=== PATIENT | female | born 2000 ===

== ENCOUNTER 2022-10-11 11:10 | Outpatient (CLI) | payer OTHER | END 2022-10-11 11:59 | disposition home or self-care (01) | LOC: PRENATAL 11:10 | PROVIDERS: ATTEND Obstetrics & Gynecology Maternal & Fetal Medicine | DX: Z76.1 Encounter for health supervision and care of foundling (principal) ==

== ENCOUNTER 2022-10-21 11:38 | Outpatient (CLI) | payer OTHER | END 2022-10-21 12:57 | disposition home or self-care (01) | LOC: PRENATAL 11:38 | PROVIDERS: ATTEND Obstetrics & Gynecology Maternal & Fetal Medicine | DX: O35.9XX0 Maternal care for (suspected) fetal abnormality and damage, unspecified, not applicable or unspecified (principal); Z3A.19 19 weeks gestation of pregnancy ==

== ENCOUNTER 2023-01-13 12:14 | Outpatient (CLI) | payer OTHER | END 2023-01-13 13:27 | disposition home or self-care (01) | LOC: PRENATAL 12:14 | PROVIDERS: ATTEND Obstetrics & Gynecology Maternal & Fetal Medicine | DX: O26.849 Uterine size-date discrepancy, unspecified trimester (principal); O36.8199 Decreased fetal movements, unspecified trimester, other fetus; O28.1 Abnormal biochemical finding on antenatal screening of mother; Z3A.31 31 weeks gestation of pregnancy ==

== ENCOUNTER 2023-02-26 01:56 | Outpatient (CLI) | payer OTHER ==
[2023-02-26] MEDS ORDERED: PRENATAL TABLE1 EAC1 PO (01:57)
== END 2023-02-26 11:46 | disposition home or self-care (01) ==
LOC: OBS/DEL 01:56
PROVIDERS: ATTEND Obstetrics & Gynecology
DX: O47.1 False labor at or after 37 completed weeks of gestation (principal); Z3A.38 38 weeks gestation of pregnancy; Z20.822 Contact with and (suspected) exposure to COVID-19

== ENCOUNTER 2023-03-09 07:31 | Inpatient (IN) | payer OTHER ==
[~2023-03-09] VITALS: Ht 149.9 cm; Wt 3.2 kg
[~2023-03-09 07:31] MED LIST: PRENATAL TABLE1 EAC1 PO
[2023-03-09] MEDS ORDERED: PRENATAL TABLE1 EAC1 PO (08:33)
== END 2023-03-12 12:47 | disposition home or self-care (01) | DRG 788 ==
LOC: LDR 07:31 → OB/GYN 07:31 → O/R 21:00 → OB/GYN 03-10 02:57
PROVIDERS: ADMIT Obstetrics & Gynecology; ATTEND Obstetrics & Gynecology
PROC: 4A1HXCZ Monitoring of Products of Conception, Cardiac Rate, External Approach (ICD-10-PCS; 2023-03-09)
PROC: 10D00Z1 Extraction of Products of Conception, Low, Open Approach (ICD-10-PCS; principal; 2023-03-09 20:00)
DX: O62.0 Primary inadequate contractions (principal); O99.824 Streptococcus B carrier state complicating childbirth; Z3A.39 39 weeks gestation of pregnancy; Z20.822 Contact with and (suspected) exposure to COVID-19; Z37.0 Single live birth

== ENCOUNTER 2024-11-05 14:47 | Outpatient (CLI) | payer OTHER | END 2024-11-05 14:49 | disposition home or self-care (01) | LOC: PRENATAL 14:47 | PROVIDERS: ATTEND Obstetrics & Gynecology Maternal & Fetal Medicine | DX: O45.90 Premature separation of placenta, unspecified, unspecified trimester (principal); O34.219 Maternal care for unspecified type scar from previous cesarean delivery; O43.90 Unspecified placental disorder, unspecified trimester; Z3A.18 18 weeks gestation of pregnancy ==

== ENCOUNTER → 2024-12-25 10:30 | Outpatient (CLI) | payer OTHER | END | disposition home or self-care (01) | LOC: PRENATAL 10:30 | PROVIDERS: ATTEND Obstetrics & Gynecology Maternal & Fetal Medicine | DX: O26.849 Uterine size-date discrepancy, unspecified trimester (principal); O34.219 Maternal care for unspecified type scar from previous cesarean delivery; O43.90 Unspecified placental disorder, unspecified trimester; Z3A.26 26 weeks gestation of pregnancy ==

== ENCOUNTER 2025-01-29 12:34 | Outpatient (CLI) | payer OTHER | END 2025-01-29 12:35 | disposition home or self-care (01) | LOC: PRENATAL 12:34 | PROVIDERS: ATTEND Obstetrics & Gynecology Maternal & Fetal Medicine | DX: O26.849 Uterine size-date discrepancy, unspecified trimester (principal); O36.8199 Decreased fetal movements, unspecified trimester, other fetus; O34.219 Maternal care for unspecified type scar from previous cesarean delivery; O43.90 Unspecified placental disorder, unspecified trimester; O24.419 Gestational diabetes mellitus in pregnancy, unspecified control; Z3A.30 30 weeks gestation of pregnancy ==

== ENCOUNTER → 2025-02-20 12:38 | Outpatient (CLI) | payer OTHER | END | disposition home or self-care (01) | LOC: PRENATAL 12:38 | PROVIDERS: ATTEND Obstetrics & Gynecology Maternal & Fetal Medicine | DX: O26.849 Uterine size-date discrepancy, unspecified trimester (principal); O36.8199 Decreased fetal movements, unspecified trimester, other fetus; O34.219 Maternal care for unspecified type scar from previous cesarean delivery; O43.90 Unspecified placental disorder, unspecified trimester; O24.419 Gestational diabetes mellitus in pregnancy, unspecified control; Z3A.32 32 weeks gestation of pregnancy ==

== ENCOUNTER 2025-03-22 09:00 | Inpatient (IN) | payer OTHER ==
[~2025-03-22] VITALS: Ht 149.9 cm; Wt 2.7 kg
[2025-03-22 11:52] LABS: URINE APPEARANCE Cloudy; URINE BILIRRUBIN Negative (NEGATIVE); URINE BLOOD Negative; URINE COLOR Yellow; URINE KETONE 15 (NEGATIVE); URINE LEUKOCYTE Large; URINE NITRATE Negative; URINE PROTEIN Negative (NEGATIVE); URINE UROBILINOGEN 1.0 E.U./dl
[2025-03-22 11:56] LABS: URINE BACTERIA 3014.2 uL (0.0-1933); URINE EPITHELIAL CELLS 86.1 uL (0.0-38.8); URINE WBC 535.5 uL (0.0-23.2)
[2025-03-22 12:06] LABS: BASO % 0.1 % (0.1-1.2); EOS # 0.06 (0.04-0.54); EOS % 0.8 % (0.7-7.0); LYMPH # 1.07 (1.18-3.74); LYMPH % 14.1 % (19.3-53.1); MEAN PLATELET VOLUME 11.10 fl (9.4-12.4); MONO # 0.56 (0.24-0.82); MONO % 7.4 % (4.7-12.5); NEUT # 5.85 (1.56-6.13); NEUT % 77.2 % (34.0-71.1); RED CELL DISTRIBUTION WIDTH 13.6 % (11.6-14.4)
[2025-03-22 12:07] LABS: URINE CAST 0.14 uL (0.0-1.40); URINE GLUCOSE 100 MG/DL (NEGATIVE); URINE RBC 1.9 uL (0.0-20.8)
[2025-03-22 12:34] LABS: INR 1.03
[2025-03-22 13:16] LABS: RH POSITIVE
[2025-03-27 09:43] VITALS: BP 134/69
[2025-03-27] MEDS ORDERED: ERYTHROMYCIN BASE OPHT 1GM EACH TUBE OP ONE (10:55)
[2025-03-27] MEDS ORDERED: OXYTOCIN 10 UNITS/ML VIAL ONE ×2 (10:55→19:45)
[2025-03-27] MEDS ORDERED: CEFAZOLIN SODIUM 1,000 MG VIAL ONE (10:56)
[2025-03-27] MEDS ORDERED: MORPHINE SULFATE 4 MG/ML VIAL IV ONE ×2 (16:15→16:45)
[2025-03-27] MEDS ORDERED: KETOROLAC TROMETHAMINE 60 MG VIAL IM STA (17:54)
[2025-03-27] MEDS ORDERED: CHLORHEXIDINE GLUCONATE 120 ML BOTTLE TP SCH (18:00)
[2025-03-27] MEDS ORDERED: OXYTOCIN 1,000 ML IV SCH (18:00)
[2025-03-27] MEDS ORDERED: RINGERS SOLUTION,LACTATED 1,000 ML IV SCH (18:00)
[2025-03-27] MEDS ORDERED: MORPHINE SULFATE 4 MG/ML VIAL IV PRN (18:00)
[2025-03-27 19:59] LABS: BASO % 0.1 % (0.1-1.2); EOS # 0.02 (0.04-0.54); EOS % 0.2 % (0.7-7.0); LYMPH # 0.99 (1.18-3.74); LYMPH % 7.7 % (19.3-53.1); MEAN PLATELET VOLUME 11.10 fl (9.4-12.4); MONO # 0.68 (0.24-0.82); MONO % 5.3 % (4.7-12.5); NEUT # 11.06 (1.56-6.13); NEUT % 86.2 % (34.0-71.1); RED CELL DISTRIBUTION WIDTH 13.2 % (11.6-14.4)
[2025-03-27 20:15] VITALS: BP 131/77
[2025-03-28 01:57] VITALS: BP 114/64
[2025-03-28 07:59] VITALS: BP 118/77
[2025-03-28] MEDS ORDERED: ACETAMINOPHEN 325 MG TABLET PO PRN (09:00)
[2025-03-28 16:00] VITALS: BP 120/80
[2025-03-29] VITALS: BP 105/66
[2025-03-29] MEDS ORDERED: OxyCODONE HCL 5 MG TABLET (ROXICODONE) PO PRN (06:15)
[2025-03-29 08:58] VITALS: BP 116/73
[2025-03-29 16:20] VITALS: BP 136/82
[2025-03-30 00:03] VITALS: BP 129/82
[2025-03-30 08:00] VITALS: BP 109/69
== END 2025-03-30 14:00 | disposition home or self-care (01) | DRG 788 ==
LOC: LDR 03-27 08:00 → O/R 03-27 10:18 → OB/GYN 03-27 10:18
PROVIDERS: ADMIT Obstetrics & Gynecology; ATTEND Obstetrics & Gynecology
PROC: 4A1HXCZ Monitoring of Products of Conception, Cardiac Rate, External Approach (ICD-10-PCS; 2025-03-27)
PROC: 10D00Z1 Extraction of Products of Conception, Low, Open Approach (ICD-10-PCS; principal; 2025-03-27 08:00)
DX: O34.211 Maternal care for low transverse scar from previous cesarean delivery (principal); O99.824 Streptococcus B carrier state complicating childbirth; Z3A.39 39 weeks gestation of pregnancy; Z37.0 Single live birth; O24.420 Gestational diabetes mellitus in childbirth, diet controlled